=== PATIENT | female | born 1995 | race Caucasian/White ===

== ENCOUNTER 2024-10-30 15:46 | Observation (INO) | payer OTHER, SELFPAY ==
[2024-10-30] VITALS (44 sets, daily range): BP systolic 130–143; BP diastolic 63–80; PULSE 80–100; RESP 18; TEMP 36.6; O2SAT 100; BMI 32.1
--- NOTE | 2024-10-30 16:37 | ECG_ITS ---
Test Date: 2024-10-30 17:05:42 Measurements Intervals [place] Rate: 83 P: 20 [place]: 118 QRS: 53 QRSD: 98 T: 26 QT: 367 QTc: 432 Interpretive Statements SINUS RHYTHM WITH SHORT [place] INTERVAL No previous ECG available for comparison Electronically Signed On 10-30-2024 18:51:55 CDT by Christian Khan M.D.
[2024-10-30] MEDS: LACTATED RINGERS 1,000 ML 999 ML IV CONT (16:55)
[2024-10-30] MEDS: ONDANSETRON INJ 4 MG/2 ML VIAL IV PUSH (16:56)
[2024-10-30 17:05] LABS: Hematocrit 28.0 % (37.0-47.0); Hemoglobin 9.5 g/dL (12.0-15.0); Immature Granulocyte Percent A 3.0 % (0-0.5); Lymphocytes Absolute Auto 1.74 K/mm3 (0.9-3.2); Mean Corpuscular HGB Conc 33.9 g/dl (32-36); Mean Corpuscular Hemoglobin 30.4 pg (26-34); Mean Corpuscular Volume 89.5 fl (80-100); Nucleated Red Blood Cells Absolute Auto 0.000 K/mm3 (0.0-0.012); Nucleated Red Blood Cells Perc 0.0 % (0.0-0.2); Platelet Count Result 252 k/mm3 (150-375); Red Blood Count 3.13 M/mm3 (4.2-5.4); White Blood Count 11.5 K/mm3 (4.5-10.0)
--- NOTE | 2024-10-30 17:14 | OBADM ---
This patient, Osmel Weber, admitted to the OB room 115 for observation. Patient/family oriented to hospital policies and general routines including ID bracelet, bed and alarms, visiting hours, pain management, procedures, bathroom and other care routines, personal items, smoking policy, room service/diet, and visiting hours. Patient/Family are encouraged to report perceived risks to care and to ask questions if they do not understand what they are told or what they should do.
[2024-10-30 17:18] LABS: Alanine Aminotransferase 19 U/L (6-35); Albumin Level 3.6 g/dL (3.5-5.1); Alkaline Phosphatase 116 U/L (38-126); Anion Gap 6 mmol/L (4-12); Aspartate Amino Transferase 24 U/L (14-36); Bilirubin,Total 0.2 mg/dL (0.2-1.3); Blood Urea Nitrogen 4 mg/dL (7-17); Calcium 8.9 mg/dL (8.4-10.2); Carbon Dioxide 23 mmol/L (22-30); Chloride 107 mmol/L (98-107); Estimated Glomerular Filt Rate > 60; Glucose 109 mg/dL (65-110); Potassium 3.1 mmol/L (3.4-5.0); Sodium 136 mmol/L (137-145); Total Protein 7.0 g/dL (6.3-8.2)
[2024-10-30 17:28] LABS: Troponin I < 0.012 ng/mL (0.000-0.034)
[2024-10-30 17:28] LABS: Appearance Urine Cloudy (Clear); Specific Grav Ur 1.015 (1.001-1.035)
[2024-10-30 17:29] LABS: Add Urine Microscopic? YES; Glucose Urine UA Negative (Negative); Leukocyte Esterase Ur Trace LEU/UL (Negative); Nitrate Urine Negative (Negative)
[2024-10-30 17:37] LABS: Non Pathogenic Casts 0-2
[2024-10-30] MEDS: FAMOTIDINE 20 MG/2 ML VIAL IV PUSH (17:38)
[2024-10-30] MEDS: ACETAMINOPHEN 500 MG TABLET 1000 MG PO (17:39)
[2024-10-30] MEDS: POTASSIUM CHLORIDE 20 MEQ ER TABLET 40 MEQ PO (19:09)
--- NOTE | 2024-11-22 10:20 | P.PNOB_ITS ---
OB - Triage/Final Diagnosis Visit Information Comments/Additional reasons for admission: I have assessed the risk for this patient, Osmel Weber, and determined that she would benefit from observation care. Evaluation Laboratory results: Laboratory Tests 10/30/24 10/30/24 16:31 16:48 WBC 11.5 H RBC 3.13 L Hgb 9.5 L Hct 28.0 L MCV 89.5 MCH 30.4 MCHC 33.9 RDW 12.9 Plt Count 252 MPV 10.6 H Immature Gran % (Auto) 3.0 H Neut % (Auto) 70.0 Lymph % (Auto) 15.2 L [place] % (Auto) 8.7 H Eos % (Auto) 2.5 Baso % (Auto) 0.6 Lymph # (Auto) 1.74 [place] # (Auto) 1.0 H Eos # (Auto) 0.3 Baso # (Auto) 0.1 Abs Immat Gran (auto) 0.34 H Absolute Neuts (auto) 8.0 H Absolute Nucleated RBC 0.000 Nucleated RBC % 0.0 Sodium 136 L Potassium 3.1 L Chloride 107 Carbon Dioxide 23 Anion Gap 6 BUN 4 L Creatinine 0.61 L Estim Creat Clear Calc Not Reportable Estimated GFR > 60 Glucose 109 Calcium 8.9 Total Bilirubin 0.2 AST 24 ALT 19 Alkaline Phosphatase 116 Troponin I < 0.012 Total Protein 7.0 Albumin 3.6 Urine Color Yellow Urine Appearance Cloudy H Urine pH 7.0 Ur Specific [place] 1.015 Urine Protein Negative Urine Glucose (UA) Negative Urine Ketones Negative Ur Blood (Man) Negative Urine Nitrate Negative Urine Bilirubin Negative Urine Urobilinogen 0.2 Leukocyte Esterase Rfl Trace H Urine RBC 0-2 Urine WBC 21-50 H Ur Squamous Epith Cells Many H Urine Bacteria 4+ H Urine Casts 0-2 Final Diagnosis (1) False labor: Code(s): O47.9 - False labor, unspecified Status: Acute
--- NOTE | 2024-11-22 11:07 | W.PM.PROC2 ---
Procedure Note - Detailed Date of Procedure 11/22/24 Pre-op Diagnosis Contractions Post-op Diagnosis Same Procedure Performed Laparoscopic bilateral salpingectomy Surgeon Jefry Beckman MD Anesthesia General Indications Unwanted fertility Findings Fluid-filled right fallopian tube Description of Procedure The patient was taken the operating room. She was prepped and draped in the dorsal lithotomy position after induction of general anesthesia. A 5 mm skin incision was made in the left upper quadrant of the abdominal skin. A 5 mm trocar was inserted the intra-abdominal cavity under direct visualization of the scope. Pneumoperitoneum was achieved. A 5 mm trocar was inserted in the left lower quadrant identical fashion. A 5 mm infraumbilical trocar was inserted in identical fashion as well. The bilateral fallopian tubes were removed. This was done by using a LigaSure cautery. The mesosalpinx adjacent to the tube was cauterized transected with LigaSure. This was initiated in the area the ovary and in a stepwise fashion moved medially to the area of the cornu of the uterus. Once there the fallopian tube was cauterized and transected. This was done in identical fashion on each side. The fallopian tubes were taken out through the left lower quadrant trocar site. The pneumoperitoneum was reduced. The trocars removed. The skin was closed with subcuticular 4 Monocryl and covered with Dermabond. She was taken to cover stable condition. Sponge lap and needle counts were correct x2. Estimated Blood Loss 5 Drains No Packing No Pathology Yes Complications No immediate complications Condition Stable Disposition PACU
== END 2024-10-30 19:25 | disposition home or self-care (01) ==
PROVIDERS: Admitting Provider Obstetrics & Gynecology; PCP Nurse Practitioner Family; Visit Provider Obstetrics & Gynecology
DX: O47.03 False labor before 37 completed weeks of gestation, third trimester (principal); Z3A.35 35 weeks gestation of pregnancy
CPT/HCPCS: 36415; 80053; 81001; 84484; 85025; 93005; 96361; 96374; 96375; A9270; G0378; G0379; J2405; J7120